=== PATIENT | female | born 1945 | race Caucasian/White ===

== ENCOUNTER 2022-01-03 13:55 | Inpatient (IN) ==
[2022-01-04] MEDS: Nystatin POWDER 30 GM BOTTLE TP SCH ×3 (00:09→20:09)
[2022-01-04] MEDS: QUEtiapine Fumarate 25 MG TABLET PO SCH ×3 (00:09→20:09)
[2022-01-04 07:06] LABS: BUN/Creatinine Ratio 30 (6-26); Blood Urea Nitrogen 32 mg/dL (8-23); Calcium 9.8 mg/dL (8.6-10.3); Carbon Dioxide 23 mEq/L (23-29); Chloride 111 mEq/L (98-107); Glucose 89 mg/dL (70-105); Osmolality,Calculated 300 (280-300); Potassium 3.9 mEq/L (3.5-5.1); Sodium 142 mEq/L (136-145); eGFR For African Americans > 60 (> 60); eGFR For Non-African Americans 51 (> 60)
[2022-01-04] MEDS: Multivit/Ca/Min/Fe/FA 1 TAB TABLET PO SCH (10:21)
[2022-01-04] MEDS: polyethylene glycoL 3350 17 GM POWD.PACK PO SCH (10:27)
[2022-01-04] MEDS: *HR* Heparin 5,000 UNIT/ML VIAL SQ SCH (23:43)
[2022-01-05] MEDS: *HR* Heparin 5,000 UNIT/ML VIAL SQ SCH ×4 (06:08→22:04)
[2022-01-05] MEDS: Multivit/Ca/Min/Fe/FA 1 TAB TABLET PO SCH (10:52)
[2022-01-05] MEDS: polyethylene glycoL 3350 17 GM POWD.PACK PO SCH (10:52)
[2022-01-05] MEDS: QUEtiapine Fumarate 25 MG TABLET PO SCH ×2 (10:52→22:03)
[2022-01-05] MEDS: Nystatin POWDER 30 GM BOTTLE TP SCH ×2 (10:52→22:04)
[2022-01-05] MEDS: Cyanocobalamin (B-12) 1,000 MCG TABLET PO SCH (10:52)
[2022-01-05] MEDS: Acetaminophen 325 MG TABLET PO PRN (10:55)
[2022-01-05 12:38] LABS: Basophils % 0.7 %; Eosinophils # 0.2 K/mcL (0.0-0.6); Eosinophils % 3.6 %; Hematocrit 33.7 % (35.3-44.9); Hemoglobin 10.7 g/dL (11.5-15.4); Immature Granulocytes % 1.8 % (0-4); Lymphocytes # 1.1 K/mcL (0.6-4.6); Mean Corpuscular HGB Conc 31.8 g/dL (31.6-35.5); Mean Corpuscular Volume 100.9 fL (83.0-100.0); Mean Platelet Volume 11.2 fL (9.4-12.4); Monocytes # 0.6 K/mcL (0.0-1.3); Monocytes % 11.3 %; Neutrophils # 3.5 K/mcL (1.6-8.9); Platelet Count 118 K/mcL (140-400); Red Blood Count 3.34 M/mcL (3.82-4.97); Red Cell Distribution Width 14.1 % (11.5-14.5); Segmented Neutrophils % 62.6 %; White Blood Count 5.6 K/mcL (4.3-11.1)
[2022-01-05 12:53] LABS: Calcium 10.1 mg/dL (8.6-10.3); Magnesium 2.1 mg/dL (1.6-2.6); Potassium 4.4 mEq/L (3.5-5.1)
[2022-01-05 13:10] LABS: Thyroid Stimulating Hormone 44.42 mcIU/mL (0.340-5.600)
[2022-01-05] MEDS ORDERED: QUEtiapine Fumarate 25 MG TABLET PO ONE (14:46)
[2022-01-05 15:44] LABS: Bilirubin,Urine Negative (Negative); Blood,Urine Trace-intact (Negative); Clarity,Urine Clear (Clear); Color,Urine Yellow (Yellow); Glucose,Urine (UA) Normal (Normal); Ketones,Urine Negative (Negative); Leukocyte Esterase,Urine Large (Negative); Nitrite,Urine Negative (Negative); Protein,Urine Negative (Neg-Trace); Urobilinogen,Urine Normal (Normal)
[2022-01-05 15:52] LABS: Squamous Epithelial Cell,Urine Few per hpf (None-Few)
[2022-01-05] MEDS: Cefdinir 300 MG CAPSULE PO SCH (22:03)
[2022-01-06] MEDS: *HR* Heparin 5,000 UNIT/ML VIAL SQ SCH ×3 (05:54→22:39)
[2022-01-06] MEDS: polyethylene glycoL 3350 17 GM POWD.PACK PO SCH (08:55)
[2022-01-06] MEDS: Cefdinir 300 MG CAPSULE PO SCH ×2 (08:55→22:39)
[2022-01-06] MEDS: Multivit/Ca/Min/Fe/FA 1 TAB TABLET PO SCH (08:56)
[2022-01-06] MEDS: Cyanocobalamin (B-12) 1,000 MCG TABLET PO SCH (08:56)
[2022-01-06] MEDS: QUEtiapine Fumarate 25 MG TABLET PO SCH ×3 (08:56→22:39)
[2022-01-06] MEDS: Nystatin POWDER 30 GM BOTTLE TP SCH ×2 (08:56→22:39)
[2022-01-06] MEDS: Acetaminophen 325 MG TABLET PO PRN ×2 (08:59→18:37)
[2022-01-07] MEDS: *HR* Heparin 5,000 UNIT/ML VIAL SQ SCH ×3 (06:55→22:01)
[2022-01-07 07:20] LABS: Basophils % 0.9 %; Eosinophils # 0.3 K/mcL (0.0-0.6); Eosinophils % 6.5 %; Hematocrit 33.3 % (35.3-44.9); Hemoglobin 10.3 g/dL (11.5-15.4); Immature Granulocytes % 1.4 % (0-4); Lymphocytes # 1.6 K/mcL (0.6-4.6); Lymphocytes % 36.7 %; Mean Corpuscular HGB Conc 30.9 g/dL (31.6-35.5); Mean Corpuscular Hemoglobin 31.3 pg (28.0-33.3); Mean Corpuscular Volume 101.2 fL (83.0-100.0); Mean Platelet Volume 11.3 fL (9.4-12.4); Monocytes # 0.5 K/mcL (0.0-1.3); Monocytes % 11.8 %; Neutrophils # 1.9 K/mcL (1.6-8.9); Platelet Count 125 K/mcL (140-400); Red Blood Count 3.29 M/mcL (3.82-4.97); Red Cell Distribution Width 14.1 % (11.5-14.5); Segmented Neutrophils % 42.7 %; White Blood Count 4.3 K/mcL (4.3-11.1)
[2022-01-07 07:40] LABS: BUN/Creatinine Ratio 29 (6-26); Blood Urea Nitrogen 31 mg/dL (8-23); Calcium 9.6 mg/dL (8.6-10.3); Carbon Dioxide 26 mEq/L (23-29); Chloride 110 mEq/L (98-107); Glucose 92 mg/dL (70-105); Osmolality,Calculated 300 (280-300); Potassium 4.5 mEq/L (3.5-5.1); Sodium 142 mEq/L (136-145); eGFR For African Americans > 60 (> 60); eGFR For Non-African Americans 50 (> 60)
[2022-01-07] MEDS: Nystatin POWDER 30 GM BOTTLE TP SCH ×2 (07:46→22:01)
[2022-01-07] MEDS: polyethylene glycoL 3350 17 GM POWD.PACK PO SCH (07:46)
[2022-01-07] MEDS: Cyanocobalamin (B-12) 1,000 MCG TABLET PO SCH (07:47)
[2022-01-07] MEDS: Multivit/Ca/Min/Fe/FA 1 TAB TABLET PO SCH (07:47)
[2022-01-07] MEDS: Cefdinir 300 MG CAPSULE PO SCH ×2 (07:47→22:01)
[2022-01-07] MEDS: QUEtiapine Fumarate 25 MG TABLET PO SCH ×2 (07:47→22:01)
[2022-01-08] MEDS: *HR* Heparin 5,000 UNIT/ML VIAL SQ SCH ×3 (05:54→21:31)
[2022-01-08] MEDS: Cefdinir 300 MG CAPSULE PO SCH ×2 (08:28→21:31)
[2022-01-08] MEDS: polyethylene glycoL 3350 17 GM POWD.PACK PO SCH (08:28)
[2022-01-08] MEDS: Multivit/Ca/Min/Fe/FA 1 TAB TABLET PO SCH (08:28)
[2022-01-08] MEDS: QUEtiapine Fumarate 25 MG TABLET PO SCH ×2 (08:28→21:31)
[2022-01-08] MEDS: Cyanocobalamin (B-12) 1,000 MCG TABLET PO SCH (08:29)
[2022-01-08] MEDS: Nystatin POWDER 30 GM BOTTLE TP SCH ×2 (08:29→21:32)
[2022-01-09] MEDS: *HR* Heparin 5,000 UNIT/ML VIAL SQ SCH ×3 (06:15→23:00)
[2022-01-09] MEDS: polyethylene glycoL 3350 17 GM POWD.PACK PO SCH (10:36)
[2022-01-09] MEDS: Cefdinir 300 MG CAPSULE PO SCH ×2 (10:37→23:01)
[2022-01-09] MEDS: QUEtiapine Fumarate 25 MG TABLET PO SCH ×2 (10:37→23:00)
[2022-01-09] MEDS: Multivit/Ca/Min/Fe/FA 1 TAB TABLET PO SCH (10:37)
[2022-01-09] MEDS: Cyanocobalamin (B-12) 1,000 MCG TABLET PO SCH (10:37)
[2022-01-09] MEDS: Nystatin POWDER 30 GM BOTTLE TP SCH ×2 (10:37→23:02)
[2022-01-09] MEDS: Acetaminophen 325 MG TABLET PO PRN (17:33)
[2022-01-10] MEDS: *HR* Heparin 5,000 UNIT/ML VIAL SQ SCH ×3 (06:43→21:18)
[2022-01-10] MEDS: polyethylene glycoL 3350 17 GM POWD.PACK PO SCH (09:37)
[2022-01-10] MEDS: Multivit/Ca/Min/Fe/FA 1 TAB TABLET PO SCH (09:37)
[2022-01-10] MEDS: Nystatin POWDER 30 GM BOTTLE TP SCH ×2 (09:37→21:18)
[2022-01-10] MEDS: Cyanocobalamin (B-12) 1,000 MCG TABLET PO SCH (09:37)
[2022-01-10] MEDS: QUEtiapine Fumarate 25 MG TABLET PO SCH ×2 (09:37→21:19)
[2022-01-11] MEDS: *HR* Heparin 5,000 UNIT/ML VIAL SQ SCH ×4 (05:11→21:04)
[2022-01-11] MEDS: Acetaminophen 325 MG TABLET PO PRN ×3 (05:13→21:03)
[2022-01-11] MEDS: QUEtiapine Fumarate 25 MG TABLET PO SCH ×2 (10:57→21:04)
[2022-01-11] MEDS: Nystatin POWDER 30 GM BOTTLE TP SCH ×2 (10:57→21:04)
[2022-01-11] MEDS: Multivit/Ca/Min/Fe/FA 1 TAB TABLET PO SCH (10:57)
[2022-01-11] MEDS: polyethylene glycoL 3350 17 GM POWD.PACK PO SCH (10:57)
[2022-01-11] MEDS: Cyanocobalamin (B-12) 1,000 MCG TABLET PO SCH (10:59)
[2022-01-12] MEDS: *HR* Heparin 5,000 UNIT/ML VIAL SQ SCH ×3 (05:13→22:05)
[2022-01-12 06:34] LABS: Hematocrit 35.6 % (35.3-44.9); Hemoglobin 11.2 g/dL (11.5-15.4); Mean Corpuscular HGB Conc 31.5 g/dL (31.6-35.5); Mean Corpuscular Hemoglobin 31.4 pg (28.0-33.3); Mean Corpuscular Volume 99.7 fL (83.0-100.0); Mean Platelet Volume 10.7 fL (9.4-12.4); Platelet Count 191 K/mcL (140-400); Red Blood Count 3.57 M/mcL (3.82-4.97); Red Cell Distribution Width 13.5 % (11.5-14.5); White Blood Count 6.2 K/mcL (4.3-11.1)
[2022-01-12 06:53] LABS: Calcium 9.9 mg/dL (8.6-10.3); Potassium 6.2 mEq/L (3.5-5.1)
[2022-01-12] MEDS: QUEtiapine Fumarate 25 MG TABLET PO SCH ×2 (08:28→22:05)
[2022-01-12] MEDS: Cyanocobalamin (B-12) 1,000 MCG TABLET PO SCH (08:28)
[2022-01-12] MEDS: Multivit/Ca/Min/Fe/FA 1 TAB TABLET PO SCH (08:28)
[2022-01-12] MEDS: polyethylene glycoL 3350 17 GM POWD.PACK PO SCH (08:29)
[2022-01-12] MEDS: Nystatin POWDER 30 GM BOTTLE TP SCH ×2 (08:29→22:04)
[2022-01-12] MEDS ORDERED: 0.9 % Sodium Chloride 1,000 ML IVC SCH (11:15)
[2022-01-12] MEDS: haloperidoL 1 MG TABLET PO PRN (14:21)
[2022-01-12] MEDS: Acetaminophen 325 MG TABLET PO PRN (22:17)
[2022-01-13] MEDS: haloperidoL 1 MG TABLET PO PRN (03:13)
[2022-01-13] MEDS: *HR* Heparin 5,000 UNIT/ML VIAL SQ SCH ×3 (06:29→21:23)
[2022-01-13 08:14] LABS: Calcium 9.4 mg/dL (8.6-10.3); Potassium 5.6 mEq/L (3.5-5.1)
[2022-01-13] MEDS ORDERED: 0.9 % Sodium Chloride 1,000 ML IVC SCH (09:00)
[2022-01-13] MEDS: QUEtiapine Fumarate 25 MG TABLET PO SCH ×3 (09:52→22:23)
[2022-01-13] MEDS: Acetaminophen 325 MG TABLET PO PRN (10:07)
[2022-01-13] MEDS: polyethylene glycoL 3350 17 GM POWD.PACK PO SCH (10:07)
[2022-01-13] MEDS: Cyanocobalamin (B-12) 1,000 MCG TABLET PO SCH (10:07)
[2022-01-13] MEDS: Multivit/Ca/Min/Fe/FA 1 TAB TABLET PO SCH (10:07)
[2022-01-13] MEDS: Nystatin POWDER 30 GM BOTTLE TP SCH ×2 (10:08→21:24)
[2022-01-13] MEDS ORDERED: Glycerin RECTAL Suppository RC ONE (18:03)
[2022-01-13] MEDS ORDERED: Milk and Molasses Enema 200 ML RC ONE (18:36)
[2022-01-13 18:53] VITALS: BP 120/72; PULSE 70; RESP 12; TEMP 97.8; O2SAT 97
[2022-01-14] MEDS: Acetaminophen 325 MG TABLET PO PRN ×2 (01:21→14:50)
[2022-01-14] MEDS: haloperidoL 1 MG TABLET PO PRN ×2 (01:21→14:50)
[2022-01-14] MEDS ORDERED: Milk and Molasses Enema 200 ML RC ONE (10:45)
[2022-01-14] MEDS: polyethylene glycoL 3350 17 GM POWD.PACK PO SCH (12:11)
[2022-01-14] MEDS: *HR* Heparin 5,000 UNIT/ML VIAL SQ SCH ×2 (12:11→14:48)
[2022-01-14] MEDS: QUEtiapine Fumarate 25 MG TABLET PO SCH (12:11)
[2022-01-14] MEDS: Nystatin POWDER 30 GM BOTTLE TP SCH (12:11)
[2022-01-14] MEDS: Multivit/Ca/Min/Fe/FA 1 TAB TABLET PO SCH (12:11)
[2022-01-14] MEDS: Cyanocobalamin (B-12) 1,000 MCG TABLET PO SCH (12:11)
[2022-01-14 13:11] LABS: Hematocrit 32.4 % (35.3-44.9); Hemoglobin 10.1 g/dL (11.5-15.4); Mean Corpuscular HGB Conc 31.2 g/dL (31.6-35.5); Mean Corpuscular Hemoglobin 31.7 pg (28.0-33.3); Mean Corpuscular Volume 101.6 fL (83.0-100.0); Mean Platelet Volume 11.1 fL (9.4-12.4); Platelet Count 185 K/mcL (140-400); Red Blood Count 3.19 M/mcL (3.82-4.97); Red Cell Distribution Width 13.7 % (11.5-14.5); White Blood Count 5.3 K/mcL (4.3-11.1)
[2022-01-14 13:12] LABS: Calcium 9.3 mg/dL (8.6-10.3); Magnesium 2.2 mg/dL (1.6-2.6); Potassium 4.6 mEq/L (3.5-5.1)
== END 2022-01-14 19:04 | disposition other institution (70) | DRG 56 ==
LOC: INPPIK 19:43
PROVIDERS: ADMIT Family Medicine; ATTEND Family Medicine